=== PATIENT | female | born 2000 | race African-American/Black ===

== ENCOUNTER 2022-03-11 12:54 | Outpatient (CLI) | payer OTHER, SELFPAY ==
--- NOTE | 2022-03-11 | ECG_ITS ---
Measurements Intervals [place] Rate: 59 P: 65 [place]: 157 QRS: 33 QRSD: 103 T: 42 QT: 450 QTc: 447 Interpretive Statements SINUS BRADYCARDIA POSSIBLE RIGHT ATRIAL ENLARGEMENT [P > 0.2mV, AGE >= 10] LEFT ATRIAL ENLARGEMENT [> 1mm x 0.1mV NEG P AREA IN V1] INCOMPLETE RIGHT BUNDLE BRANCH BLOCK NONSPECIFIC ST-T WAVE ABNORMALITY NO PREVIOUS ECG AVAILABLE FOR COMPARISON Electronically Signed On 03-12-2022 16:30:23 CDT by Terrence Rios M.D.
--- NOTE | ~2022-03-11 | XR_ITS ---
EXAMINATION: XR chest 2V 03/11/2022 13:27 INDICATION: Chest pain PROCEDURE: 2 view chest COMPARISON: No prior studies for comparison. FINDINGS: The lungs are clear. The cardiomediastinal silhouette is within normal limits. There are no pleural effusions. There is no pneumothorax suspected. IMPRESSION: 1: NO ACUTE CARDIOPULMONARY DISEASE. Reviewed, dictated and finalized at location B.
== END 2022-03-11 12:55 | disposition home or self-care (01) ==
PROVIDERS: Visit Provider Emergency Medicine
DX: R07.9 Chest pain, unspecified (principal); R06.02 Shortness of breath; I45.10 Unspecified right bundle-branch block
CPT/HCPCS: 71046; 93005